=== PATIENT | female | born 2000 | race Two or more races ===

== ENCOUNTER → 2025-04-06 12:02 | Outpatient (BNVA) | payer OTHER, SELFPAY | PROVIDERS: Visit Provider Physician Assistant Medical | DX: Z13.89 Encounter for screening for other disorder (principal) | CPT/HCPCS: 73130; 99202 ==

== ENCOUNTER → 2025-04-21 10:46 | Outpatient (BNVA) | payer OTHER, SELFPAY | PROVIDERS: Visit Provider Internal Medicine | DX: Z13.89 Encounter for screening for other disorder (principal) | CPT/HCPCS: 73080; 99213 ==

== ENCOUNTER 2025-10-18 20:37 | Emergency (ER) | payer OTHER, SELFPAY ==
[2025-10-18 20:40] VITALS: BP 121/82; PULSE 88; RESP 16; TEMP 36.9; O2SAT 100; BMI 33.8
[2025-10-18 21:04] LABS: MANUAL DIFF FLAG NO
[2025-10-18 21:25] LABS: Hematocrit 40.3 % (37.0-47.0); Hemoglobin 13.8 g/dl (12.0-16.0); Imm Gran Abs Auto 0.05 X10*3/uL (0.00-0.03); Imm Gran Pct Auto 0.4 % (0.0-0.4); Lymphocytes Absolute Auto 4.1 X10*3/uL (1.2-4.9); Mean Corpuscular HGB Conc 34.2 g/dl (31.0-35.0); Mean Corpuscular Hemoglobin 29.6 pg (27.0-33.0); Mean Corpuscular Volume 86.3 fL (80.0-98.0); NRBC Abs Auto 0.000 X10*3/uL (0.0-0.012); NRBC Pct Auto 0.0 /100WBC (0.0-0.2); Platelet Count 408 X10*3/uL (160-400); Red Blood Count 4.67 X10*6/uL (4.20-5.50); White Blood Count 13.8 X10*3/uL (4.8-10.8)
[2025-10-18 21:29] LABS: Alanine Aminotransferase 41 U/L (0-31); Albumin Level 4.9 g/dL (3.5-5.0); Alkaline Phosphatase 68 U/L (39-117); Anion Gap 14 (12-20); Aspartate Amino Transferase 30 U/L (5-31); Blood Urea Nitrogen 8 mg/dL (9-16); Calcium 9.3 mg/dL (8.4-10.2); Carbon Dioxide 21 mmol/L (22-29); Chloride 107 mmol/L (96-108); Creatinine Clr Calc Pharmacy 147.6; Estimated Glomerular Filt Rate > 60; Potassium 3.1 mmol/L (3.3-5.1); Sodium 139 mmol/L (135-145); Total Protein 7.8 g/dL (6.5-8.0)
--- OUTSIDE RECORDS SUMMARY | 2025-10-18 22:20 | XMS_ITS | Encounter Summary ---
Author Organization [employer] [facility] Prior to 09/02/2024 Address [address] [place] [address] Care Team Providers Care Fashion Merchandiser Name Role Phone Demarcus North MD Primary Care Provider Francoise Morfin MD Primary Care Provider [phone] Daren Howard MD Primary Care Provider [phone] Encounter Details Date Type Department Care Team Description 03/21/2014 Traveling Sales Executive Report Medical Records [address] [place] [address] Aung Sweeney Social History Tobacco Use Types Packs/Day Years Used Date Smoking Tobacco: Never Smokeless Tobacco: Never Alcohol Use Standard Drinks/Week Comments Not Asked 0 (1 standard drink = 0.6 oz pur e alcohol) Alcohol Habits Answer Date Recorded How often do you have a drink containing alcohol ? Never 10/11/2020 How many drinks containing a lcohol do you have on a typical day when you are drinking? Not asked How often do you have six or more drinks on one occasion? Not asked Sex Assigned at Date Recorded Not on file Job Start Date Occupation Industry Not on file Not on file Not on file documented as of this encounter Plan of Treatment Not on file documented as of this encounter Visit Diagnoses Not on filedocumented in this encounter Care Teams Fashion Merchandiser Relationship Specialty Start Date End Date Demarcus North MD PCP - General Pediatrics 05/29/13 10/10/20 Francoise Bose MD PCP - General Internal Medicine 10/11/20 07/27/22 Daren Howard MD PCP - General Internal Medicine 07/28/22 documented as of this encounter
--- OUTSIDE RECORDS SUMMARY | 2025-10-18 22:20 | XMS_ITS | Encounter Summary ---
Author Organization [employer] [facility] Prior to 09/02/2024 Address [address] [place] [address] Care Team Providers Care Director External Communications Name Role Phone Demarcus North MD Primary Care Provider Francoise Morfin MD Primary Care Provider [phone] Daren Howard MD Primary Care Provider [phone] Encounter Details Date Type Department Care Team Description 06/02/2013 Business Doc Medical Records [address] [place] [address] Abstract, Provider Social History Tobacco Use Types Packs/Day Years [...] on filedocumented in this encounter Care Teams Director External Communications Relationship Specialty Start Date End Date Demarcus North MD PCP - General Pediatrics 05/29/13 10/10/20 Francoise Bose MD PCP - General Internal Medicine 10/11/20 07/27/22 Daren Howard MD PCP - General Internal Medicine 07/28/22 documented as of this encounter
--- OUTSIDE RECORDS SUMMARY | 2025-10-18 22:20 | XMS_ITS | Encounter Summary ---
Author Organization [employer] [facility] Prior to 09/02/2024 Address [address] [place] [address] Care Team Providers Care Hot Dog Vendor Name Role Phone Demarcus North MD Primary Care Provider Francoise Morfin MD Primary Care Provider [phone] Daren Howard MD Primary Care Provider [phone] Encounter Details Date Type Department Care Team Description 05/24/2013 Transfer Records Medical Records [address] [place] [address] Abstract, Provider Social History Tobacco Use Types Packs/Day Years Used Date Smoking Tobacco: Never Assessed Alcohol Habits Answer Date Recorded How often [...] on filedocumented in this encounter Care Teams Hot Dog Vendor Relationship Specialty Start Date End Date Demarcus North MD PCP - General Pediatrics 05/29/13 10/10/20 Francoise Bose MD PCP - General Internal Medicine 10/11/20 07/27/22 Daren Howard MD PCP - General Internal Medicine 07/28/22 documented as of this encounter
--- OUTSIDE RECORDS SUMMARY | 2025-10-18 22:20 | XMS_ITS | Encounter Summary ---
Author Organization [employer] [facility] Prior to 09/02/2024 Address [address] [place] [address] Care Team Providers Care Commissions Specialist Name Role Phone Francoise Bose MD Primary Care Provider [phone] Daren Howard MD Primary Care Provider [phone] Encounter Details Date Type Department Care Team Description 05/23/2021 Telephone OBGYN - [employer]. [address] [place] [address] Aleja Wilkins MD [address] [place] [address] Social History Tobacco Use Types Packs/Day Years Used Date Smoking Tobacco: Never Smokeless Tobacco: Never Alcohol Use Standard Drinks/Week Comments No 0 (1 standard drink = 0.6 oz [...] on file documented as of this encounter Miscellaneous Notes * Telephone Encounter - Adrianne Harris R.N. - 05/23/2021 9:37 AM EDT Call placed to patient home number in response to my chart message. VM left with request for return call; will also respond to my chart message. documented in this encounter Plan of Treatment Not on file documented as of this encounter Visit Diagnoses Not on filedocumented in this encounter Care Teams Commissions Specialist Relationship Specialty Start Date End Date Francoise Bose MD PCP - General Internal Medicine 10/11/20 07/27/22 Daren Howard MD PCP - General Internal Medicine 07/28/22 documented as of this encounter
--- OUTSIDE RECORDS SUMMARY | 2025-10-18 22:20 | XMS_ITS | Encounter Summary ---
Author Organization [employer] [facility] Prior to 09/02/2024 Address [address] [place] [address] Care Team Providers Care Wire Mesh Filter Fabricator Name Role Phone Francoise Bose MD Primary Care Provider [phone] Daren Howard MD Primary Care Provider [phone] Reason for Visit * Reason Onset Date Comments Cyst 03/12/2022 Encounter Details Date Type Department Care Team Description 03/12/2022 Telephone OBGYN - [address] [place] [phone] Ailin Quintero, [address] [address] Cyst Social History Tobacco Use Types Packs/Day Years [...] encounter Miscellaneous Notes * Telephone Encounter - Natacha Perera M.A. - 03/12/2022 2:22 PM EDT review * Telephone Encounter - Stephanie Tito - 03/12/2022 2:18 PM EDT Patient calling states had a cyst to her vaginal labia that drained on its own. Patient wants to know does she need to schedule follow up for evaluation or is there anything else she should do. Please advise documented in this encounter Plan of Treatment Not on file documented as of this encounter Visit Diagnoses Not on filedocumented in this encounter Care Teams Wire Mesh Filter Fabricator Relationship Specialty Start Date End Date Francoise Bose MD PCP - General Internal Medicine 10/11/20 07/27/22 Daren Howard MD PCP - General Internal Medicine 07/28/22 documented as of this encounter
--- OUTSIDE RECORDS SUMMARY | 2025-10-18 22:20 | XMS_ITS | Encounter Summary ---
Author Organization [employer] [facility] Prior to 09/02/2024 Address [address] [place] [address] Care Team Providers Care Well Flow Operator Name Role Phone Demarcus North MD Primary Care Provider Francoise Morfin MD Primary Care Provider [phone] Daren Howard MD Primary Care Provider [phone] Encounter Details Date Type Department Care Team Description 03/01/2018 Director Industrial Relations Report Medical Records [address] [place] [address] Abstract, Provider Social History Tobacco Use Types [...] on filedocumented in this encounter Care Teams Well Flow Operator Relationship Specialty Start Date End Date Demarcus North MD PCP - General Pediatrics 05/29/13 10/10/20 Francoise Bose MD PCP - General Internal Medicine 10/11/20 07/27/22 Daren Howard MD PCP - General Internal Medicine 07/28/22 documented as of this encounter
--- OUTSIDE RECORDS SUMMARY | 2025-10-18 22:20 | XMS_ITS | Encounter Summary ---
Author Organization [employer] [facility] Prior to 09/02/2024 Address [address] [place] [address] Care Team Providers Care Human Resource Assistant Name Role Phone Demarcus North MD Primary Care Provider Francosie Morfin MD Primary Care Provider [phone] Daren Howard MD Primary Care Provider [phone] Encounter Details Date Type Department Care Team Description 06/02/2013 SCAN Medical Records [address] [place] [address] Abstract, Provider Social History Tobacco Use Types [...] on filedocumented in this encounter Care Teams Human Resource Assistant Relationship Specialty Start Date End Date Demarcus North MD PCP - General Pediatrics 05/29/13 10/10/20 Francoise Bose MD PCP - General Internal Medicine 10/11/20 07/27/22 Daren Howard MD PCP - General Internal Medicine 07/28/22 documented as of this encounter
--- OUTSIDE RECORDS SUMMARY | 2025-10-18 22:20 | XMS_ITS | Clinical Summary ---
Author Organization [facility] Address [address] [place] [address] Phone Care Team Providers Care Concrete Engineering Technician Name Role Phone Daren Howard MD Primary Care Provider [phone] Allergies No known active allergies Medications ibuprofen (ADVIL,MOTRIN) 800 mg tablet Active levonorgestreL (Mirena) 21 mcg/24hr (up to 8 yrs) 52 mg IUD by intrauterine route. Active Active Problems Problem Noted Date Diagnosed Date Allergic rhinitis 08/22/2025 Overview (08/22/2025): Has been on Zyrtec and flonase Last Assessment & Plan: Well controlled. No Flonase at the moment. Mild intermittent asthma 08/22/2025 Overview (08/22/2025): 2 hosp, no intubations, by 2009 steroids 3 x year Has been on Singulair, Flovent and alb prn 02/26/2018 Doing well of flovent for years. Some symptoms when active, alb prior to PA, if not better to be seen. Last Assessment & Plan: Asthma Control Test Total Score: 19 Interpetation of Score: < or equal to 19 Intervention Recommended Has not used Albuterol in months. No flovent at the moment Vulvar cyst 01/26/2023 Overview (08/22/2025): Last Assessment & Plan: Patient counseled on expectant management with continued sitz bath's versus incision and drainage today. She elects for the latter. I&D performed, tolerated well by patient. Postprocedure instructions reviewed. All questions answered. Bartholin's gland abscess 10/02/2022 Overview (08/22/2025): Drained spontaneously in office IUD (intrauterine device) in place 06/28/2022 Overview (08/22/2025): Last Assessment & Plan: Seems to be appropriately placed, but I recommended we obtain an US. Pelvic pain 06/28/2022 Overview (08/22/2025): Last Assessment & Plan: No obvious cause. Could be an ovarian cyst with IUD in place. Will get pelvic US. Syncope 03/07/2019 Overview (08/22/2025): 03/07/19 possible vasovagal syndrome. MDD (major depressive disorder) 03/20/2014 Overview (08/22/2025): [facility] admission 03/09/14 had psychotic features (hallusinations), CBC, CMP, TSH NL, lipid panel NL 03/21/14 admitted to partial hosp 10/02/14 cutting her [place], depressed, see therapist, mother to call and request eval ROSA by psychiatrist. 10/02/14 unable to contact psychiatrist, therapist agrees with meds, started on prozac 20 gm FU in 2 weeks. 11/24/13 mother d/c prozac to sleepy during the day, mood ok, seen therapist, waiting list for psychiatrist. 01/31/15 [place] [facility] [place] [place] much better, good grades, happy, 09/24/15 not stressors, no mood problem,. Feeling happy at school and at home. 02/15 much better, observe MOORE (headache) 05/31/2013 Overview (08/22/2025): Morning MOORE with emesis nl head CT 2007 Last Assessment & Plan: No MOORE Encounters Date Type Department Care Team Description 10/04/2025 Telephone Obstetrics and Gynecology [address] [address] Ailin Cohen CNM 08/28/2025 3:30 PM EDT Procedure visit Obstetrics & Gynecology - [address] [address] Evelyn Mendenhall CNM Encounter for IUD removal (Primary Dx) from Last 3 Months Immunizations Immunization Administration Dates Next Due DTaP (Infanrix) 6wks to less than 7yo ,03/09/2003,11/24/2002,11/24,2001,2001 [id number] (Pentacel) 2mo to less than 5yo 03/09/2003,11/24/2002,2001,08/24,2001 HPV 9-valent (Gardisil) 9yo to less than 46yo 07/23/2016,02/12/2016 HPV, Quadrivalent 10/02/2014 Hepatitis B Pediatric (Enger ix B; Recombivax HB) to less than 20 yo 11/24/2002,2001,2001 IPV Inactivated polio (Ipol) 6wks and older 04/16/2005,11/24/2002,2001,08/24,2001 Influenza trivalent, 0.5mL, preservative free (Fluarix; FluLaval; Fluzone) ages 6mo and older (Afluria) 3 years and older 11/20/2017,07/23/2016,09/24/2015,10/02,08/23/2008 MMR, measles mumps and rubel la Live (Priorix; M-M-R II) 12mo and older 04/16/2005,05/23/2002 Meningococcal MCV4P 02/26/2018,10/02/2014 Pneumococcal Conjugate Vacci ne, 7 Valent 03/09/2003 Tdap Tetanus diptheria acell ular pertussis (Boostrix; Adacel) 7yo and older 06/16/2013 Varicella live (Varivax) 12m o and older 06/16/2013,07/12/2003 Surgical History Surgery Date Site/Laterality Comments APPENDECTOMY 2007 PROCEDURE: HISTORICAL APPENDECTOMY Medical History Medical History Date Comments Mild intermittent asthma DX:Mild intermittent asthma Allergic rhinitis DX:Allergic rh initis Constipation DX:Constipation Influenza A 11/21/2017 DX:Influenza A Chlamydia contact, treated 10/27/2020 DX:Ch lamydia contact, treated Family History Medical History Relation Name Comments Diabetes Father type 2 Other: thyroid ca Father's side father's sisters Depression Mother Hypertension Mother Other: arthritis Mother Other: asd Mother open hear repai r Other: fibromyalgia Mother Other: head strock Mother 2009 Breast cancer Neg Hx Colon cancer Neg Hx Ovarian cancer Neg Hx Relation Name Status Comments Father Father's side Mother Social History Tobacco Use Types Packs/Day Years Used Date Smoking Tobacco: Never Smokeless Tobacco: Never Alcohol Use Standard Drinks/Week Comments Yes 0 (1 standard drink = 0.6 oz pur e alcohol) Comments Unknown Sex and Gender Information Value Date Recorded Sex Assigned at Not on file Legal Sex Female 8:28 AM EST Gender Identity Not on file Sexual Orientation Not on file Obstetrics History Para Term AB IAB SAB Ectopic Multiple Livin g Live Births 0 0 0 0 0 0 0 0 Last Filed Vital Signs Vital Sign Reading Time Taken Comments Blood Pressure 110/71 08/28/2025 3:37 PM EDT Pulse 79 08/28/2025 3:37 PM EDT Temperature - - Respiratory Rate - - Oxygen Saturation - - Inhaled Oxygen Concentration - - Weight 82 kg (180 lb 12.8 oz) 08/28/2025 3:37 PM EDT Height 157.5 cm (5' 2 ) 08/28/2025 3:37 PM EDT Body Mass Index 33.07 08/28/2025 3:37 PM EDT Plan of Treatment Health Maintenance Due Date Last Done Comments Gonorrhea/Chlamydia Screening 2001 Pneumococcal Vaccine: Pediatrics (0 to 5 Years) and At-Risk Patients (6 to 49 Years) (1 of 1 - PPSV23, PCV20, or PCV21) 2007 03/09/2003 HIV Screening 10/05/2022 Hepatitis C Screening 10/05/2022 Social Influencers of Health Screening 10/05/2022 DTaP,Tdap,and Td Vaccines (7 - Td or Tdap) 06/16/2023 06/16/2013, 05/21/2005, 03/09/2003, Additional history exists Depression Screening 11/02/2024 COVID-19 Vaccine (1 - 2025-26 season) 2025 Influenza Vaccine (#1) 2025 8, 07/23/2016, 09/24/2015, Additional history exists Cervical Cancer Screening: Pap Smear 04/08/2026 04/08/2023 RSV Immunization Adult Patients (1 - 1-dose 75+ series) 2076 Hepatitis B Vaccines Completed 11/24/2002, 2001, 2001 HIB Vaccines Completed 03/09/2003, 06/2003, 11/24/2002, Additional history exists IPV Vaccines Completed 04/16/2005, 06/2003, 11/24/2002, Additional history exists MMR Vaccines Completed 04/16/2005, 05/23/2002 Varicella Vaccines Completed 06/16/2013, 07/12/2003 HPV Vaccines Completed 07/23/2016, 01/31, 10/02/2014 Meningococcal ACWY Vaccine Completed 02/26/2018, Hepatitis A Vaccines Aged Out No long er eligible based on patient's age to complete this topic Meningococcal B Vaccine Aged Out No l onger eligible based on patient's age to complete this topic RSV Immunization Patients Under 20 months Aged Out No longer eligible based on patient's age to complete this topic Procedures Procedure Name Priority Date/Time Associated Diagnosis Comments OH REMOVAL INTRAUTERINE DEVICE Routine 08/28/2025 3:35 PM EDT Encounter for IUD removal PAP SMEAR Routine 04/08/2023 from Last 3 Months or Most Recently Relevant to Health Maintenance Results * OH REMOVAL INTRAUTERINE DEVICE (08/28/2025 3:35 PM EDT) Narrative Evelyn Mendenhall CNM - 08/28/2025 3:35 PM EDT Evelyn Mendenhall CNM 08/28/2025 3:45 PM IUD Removal Date/Time: 08/28/2025 3:35 PM Performed by: Evelyn Mendenhall CNM Authorized by: Evelyn Mendenhall CNM Informed Consent: Procedure/treatment, purpose, treatment alternatives, risks/potential complications and benefits explained: yes Patient questions answered: yes Patient agrees, verbalizes understanding, and wants to proceed: yes Consent given by: Patient Informed consent discussion completed by Physician/EMEKA with patient: Witnessed Pre-procedure timeout performed: yes Removal Procedure: Strings visible: yes Removal device: bozzerman grasp strings. Removal reason: Side effects Removal successful: yes Complications: no Comments: Declines bc at this time us Evelyn Mendenhall CNM IN CLINIC/BEDSIDE ORDERABLES Final Result * Pap smear (04/08/2023) 04/08/2023 Narrative HISTORICAL TESTING LAB RESULTING AGENCY - 04/15/2023 4:15 PM EDT [id number] THINPREP PAP, IMAGED: NEGATIVE FOR SQUAMOUS INTRAEPITHELIAL LESION AND MALIGNANCY . SHIFT IN FABIAN, SUGGESTIVE OF BACTERIAL VAGINOSIS. ABUNDANT PARTIALLY OBSCURING ACUTE INFLAMMATORY CELLS ARE PRESENT. CAMRYN BLISS(ASCP) (CASE ELECTRONICALLY SIGNED 04 15 2023) ADEQUACY: SATISFACTORY ENDOCERVICAL/TRANSFORMATION ZONE COMPONENT PRESENT. SOURCE: THINPREP PAP HPV IF ASCUS, CERVICAL, IMAGED CLINICAL INFORMATION: HPV IF DIAGNOSIS OF ASCUS. HORMONES IUD, [Z12.4] us Mildred Perdomo DO LAB CYTOLOGY ORDERABLES Final Result HISTORICAL TESTING LAB RESULTING AGENCY from Last 3 Months or Most Recently Relevant to Health Maintenance Insurance [facility] [place] [address] Care Teams Concrete Engineering Technician Relationship Specialty Start Date End Date Daren Howard MD [address] [place] [address] PCP - General Internal Medicine 07/28/22
--- OUTSIDE RECORDS SUMMARY | 2025-10-18 22:20 | XMS_ITS | Encounter Summary ---
Author Organization [employer] [facility] Prior to 09/02/2024 Address [address] [place] [address] Care Team Providers Care Fast Food Fry Cook Name Role Phone Demarcus North MD Primary Care Provider Frnacoise Morfin MD Primary Care Provider [phone] Daren Howard MD Primary Care Provider [phone] Encounter Details Date Type Department Care Team Description 09/30/2019 Release of Information Medical Records [address] [place] [address] Abstract, Provider Social History Tobacco Use Types [...] on filedocumented in this encounter Care Teams Fast Food Fry Cook Relationship Specialty Start Date End Date Demarcus North MD PCP - General Pediatrics 05/29/13 10/10/20 Francoise Bose MD PCP - General Internal Medicine 10/11/20 07/27/22 Daren Howard MD PCP - General Internal Medicine 07/28/22 documented as of this encounter
--- OUTSIDE RECORDS SUMMARY | 2025-10-18 22:20 | XMS_ITS | Encounter Summary ---
Author Organization [employer] [facility] Prior to 09/02/2024 Address [address] [place] [address] Care Team Providers Care Portfolio Management Marketing Name Role Phone Francoise Bose MD Primary Care Provider [phone] Daren Howard MD Primary Care Provider [phone] Encounter Details Date Type Department Care Team Description 10/27/2020 Orders Only OBGYN - [place] [address] [place] [address] Aleja Wilkins MD [address] [place] [address] [phone] Social History Tobacco Use Types Packs/Day Years [...] file Not on file Not on file COVID-19 Exposure Response Date Recorded In the last month, have you been in contact with someone who was confirmed or suspected to have Coronavirus / COVID-19? No / Unsure 10/17/2020 11:26 AM EST documented as of this encounter Plan of Treatment Not on file documented as of this encounter Visit Diagnoses Not on filedocumented in this encounter Care Teams Portfolio Management Marketing Relationship Specialty Start Date End Date Francoise Bose MD PCP - General Internal Medicine 10/11/20 07/27/22 Daren Howard MD PCP - General Internal Medicine 07/28/22 documented as of this encounter
--- OUTSIDE RECORDS SUMMARY | 2025-10-18 22:20 | XMS_ITS | Encounter Summary ---
Author Organization [employer] [facility] Prior to 09/02/2024 Address [address] [place] [address] Care Team Providers Care Gas Specialist Name Role Phone Demarcus North MD Primary Care Provider Francoise Morfin MD Primary Care Provider [phone] Daren Howard MD Primary Care Provider [phone] Encounter Details Date Type Department Care Team Description 11/24/2014 Telephone Pediatrics - [address] [address] Demarcus North MD Social History Tobacco Use Types Packs/Day Years [...] encounter Miscellaneous Notes * Telephone Encounter - Demarcus North MD - 11/24/2014 6:21 PM EST As per mother seen therapist, waiting list for psychiatrist. As per mother mood disorder not worse.Good days and bad days. Mother stopped Prozac, to sleepy during the day. Mother again reports that menses are regular and not heavy. Notify about lo hg/ will start her on MVT with iron and to increase iron intake in her diet. Mother does not want OCP at the moment. Will call in 2 months to recheck labs. Mother to call us before if any updates. documented in this encounter Plan of Treatment Not on file documented as of this encounter Visit Diagnoses Diagnosis Abnormal uterine bleeding (AUB) MDD (major depressive disorder) Major depressive disorder, single episode, unspecified documented in this encounter Care Teams Gas Specialist Relationship Specialty Start Date End Date Demarcus North MD PCP - General Pediatrics 05/29/13 10/10/20 Francoise Bose MD PCP - General Internal Medicine 10/11/20 07/27/22 Daren Howard MD PCP - General Internal Medicine 07/28/22 documented as of this encounter
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
[2025-10-18 22:28] LABS: Appearance Urine Cloudy; Glucose Urine UA Negative (Negative); PH 8.0 (5.0-9.0); Specific Gravity - Urine 1.015 (1.005-1.025); UMIC TRIGGER UACC YES
[2025-10-18 22:44] LABS: UACC Culture Trigger YES
[2025-10-18 22:52] VITALS: BP 106/70; PULSE 82; RESP 19; TEMP 36.6; O2SAT 98
--- NOTE | 2025-10-18 22:59 | ED.NAVMDI ---
HPI - Nausea/Vomiting/Diarrhea General Chief complaint: Nausea/Vomiting/Diarrhea Stated complaint: hand, face, feet cramp Time Seen by Provider: 10/18/25 22:56 Source: patient Mode of arrival: ambulatory Limitations: no limitations History of Present Illness ED Provider: Jaleel MAE HPI Narrative: The patient is a 25-year-old female presents with approximately six hours of progressive painful cramping of the hands and feet that began after multiple episodes of vomiting earlier in the day. Patient reports shortly after vomiting episodes, while seated, she developed ringing in the ears followed by facial tingling that spread to her arms, then cramping of both hands and feet. She reports feeling short of breath at that time and believes she may have experienced a panic attack. She denies similar episodes in the past. Earlier today she sought evaluation at another facility but left due to a prolonged wait time. Yesterday she felt well. She reports subjective chills, however denies associated objective fever, chest pain, cough, hematemesis, hematochezia, melena, diarrhea and dysuria. Related Data Previous Rx's ?Medication ?Instructions ?Recorded ibuprofen 800 mg tablet 800 mg PO TID PRN pain #30 tabs 04/06/25 cephalexin 500 mg capsule 500 mg PO QID #28 caps 10/19/25 ondansetron 4 mg disintegrating 4 mg PO Q8H PRN nausea and 10/19/25 tablet vomiting #14 tabs Allergies Allergy/AdvReac Type Severity Reaction Status Date / Time No Known Allergies Allergy Verified 10/18/25 20:42 Review of Systems Review of Systems: Yes all other systems are reviewed and are negative PMFSH Social History Social History Smoked in Last 30 Days: No Use of substances other than those prescribed or required for medical reasons: Yes Substance Use Type: Marijuana Advance Directives: No Advance Directives Information Provided: Yes Physical Exam Vital Signs: Vital Signs: Last Vital Signs Temp 98 F 10/18/25 22:52 Pulse 76 10/19/25 01:29 Resp 18 10/19/25 01:29 BP 119/76 10/19/25 01:29 Pulse Ox 100 10/19/25 01:29 O2 Del Method Room Air 10/19/25 01:29 BMI result Body Mass Index 33.8 CONSTITUTIONAL: The patient appears non-toxic, well nourished and in no acute distress. Vital signs as documented. HEAD: Atraumatic, normocephalic. EYES: EOMs intact, pupils equal and appropriately reactive to light, conjunctiva clear, no exudate. ENT: Nares patent, no discharge. Airway patent, no audible stridor, visible mucosa is pink and moist without noted lesions. NECK: Trachea is midline, no obvious masses or gross abnormalities. CHEST: Symmetric movement, normal appearance. LUNGS: LS present and CTAB, no w/r/r. Non-labored work of breathing. CARDIAC: Regular Rhythm, S1/S2 appreciated, no murmurs, rubs or gallops. ABDOMEN: Abdomen soft and non-tender x4 quadrants, no palpable masses or organomegaly. : Deferred. EXTREMITIES: Mild carpopedal spasm noted in the bilateral hands, otherwise normal tone, No obvious acute injury or other deformity noted. NEURO: Alert and oriented x3, CN II-XII intact. No obvious sensory or motor deficits. Speech clear and appropriate. PSYCH: normal affect, appropriate eye contact, fluid speech, with appropriate response to questioning. No reported suicidality or homicidality. SKIN: Warm, dry, color appropriate, normal turgor. No rashes noted. Medications Administered Discontinued Medications Generic Name Dose Route Start Last Admin Trade Name Freq PRN Reason Stop Dose Admin Diazepam 5 mg 10/18/25 23:19 10/18/25 23:36 Diazepam 10 Mg/2 Ml Cartridge IVPUSH 10/18/25 23:20 5 mg STAT STA Administration Sodium Chloride 1,000 mls @ 999 mls/hr 10/18/25 23:30 10/19/25 01:06 Ns IV 10/19/25 00:30 Infused .Q1H1M OLEGARIO Infusion Potassium Chloride 10 meq in 100 mls @ 100 mls/hr 10/18/25 23:30 10/19/25 03:27 Potassium Chloride/H20 IV 10/19/25 03:29 100 mls/hr Q1H OLEGARIO Administration Ceftriaxone Sodium 1 gm/ 50 mls @ 100 mls/hr 10/18/25 23:19 10/19/25 00:06 Sodium Chloride IV 10/18/25 23:48 Infused ONCE ONE Infusion Ketorolac Tromethamine 15 mg 10/18/25 23:19 10/18/25 23:36 Ketorolac Tromethamine 15 Mg/Ml Vial IVPUSH 10/18/25 23:20 15 mg ONCE ONE Administration Potassium Chloride 40 meq 10/18/25 23:19 10/18/25 23:34 Potassium Chloride Er 20 Meq Tab.Er.Prt PO 10/18/25 23:20 40 meq ONCE ONE Administration Medical Decision Making Medical Decision Making [facility] Narrative: 11:22 PM 10/18/2025 (Katy MAE): The patient is a 25-year-old female presents with approximately six hours of progressive painful cramping of the hands and feet that began after multiple episodes of vomiting earlier in the day. Patient reports shortly after vomiting episodes, while seated, she developed ringing in the ears followed by facial tingling that spread to her arms, then cramping of both hands and feet. She reports feeling short of breath at that time and believes she may have experienced a panic attack. She denies similar episodes in the past. Earlier today she sought evaluation at another facility but left due to a prolonged wait time. Yesterday she felt well. She reports subjective chills, however denies associated objective fever, chest pain, cough, hematemesis, hematochezia, melena, diarrhea and dysuria. In the ED the patient appears anxious, but in no acute distress, patient does have mild carpopedal spasm noted of the bilateral hands, lung sounds are clear, abdomen nontender, remainder of exam is benign. The patient is alert and oriented, denies headache, recent fall, or other blunt head trauma. The patient's laboratory evaluation demonstrates leukocytosis with 13.8, no anemia, or BEVERLY. The patient's chemistry does demonstrate hypokalemia. The patient's urinalysis demonstrates large leukocyte esterase with greater than 50 WBCs and 4+ bacteria. The patient will be further evaluated with magnesium level, we will provide IV fluid hydration, antispasmodic, antibiotic, oral and IV potassium repletion, and we will replete magnesium as indicated when resulted. 4:29 AM 10/19/2025 (Katy MAE): The patient's symptoms have dramatically improved following interventions in the ED. Patient has been resting comfortably during potassium infusion. Carpopedal spasm has completely resolved and patient reports feeling improvement in symptoms. Upon completion of potassium infusion the patient will be discharged with a 7 day course of cephalexin for her UTI, antiemetics PRN, and outpatient follow up. Admission/Observation Consideration of admission/observation: Escalation of care including admission/observation considered Lab Data MDM Lab Attestation statement: I reviewed the patient's lab results. 10/18/25 20:57 10/18/25 20:57 Labs: Lab Results 10/18/25 10/18/25 Range/Units 20:57 22:07 WBC 13.8 H (4.8-10.8) X10*3/uL RBC 4.67 (4.20-5.50) X10*6/uL Hgb 13.8 (12.0-16.0) g/dl Hct 40.3 (37.0-47.0) % MCV 86.3 (80.0-98.0) fL MCH 29.6 (27.0-33.0) pg MCHC 34.2 (31.0-35.0) g/dl RDW 12.8 (11.0-16.0) % Plt Count 408 H (160-400) X10*3/uL MPV 8.9 L (9.4-12.3) fL Immature Gran % (Auto) 0.4 (0.0-0.4) % Neut % (Auto) 65.5 (45-73) % Lymph % (Auto) 29.6 (20-40) % Yates % (Auto) 4.0 (2-11) % Eos % (Auto) 0.0 (0-4) % Baso % (Auto) 0.5 (0-2) % Lymph # (Auto) 4.1 (1.2-4.9) X10*3/uL Yates # (Auto) 0.6 (0.1-1.2) X10*3/uL Eos # (Auto) 0.0 (0.0-0.4) X10*3/uL Baso # (Auto) 0.1 (0.0-0.2) X10*3/uL Abs Immat Gran (auto) 0.05 H (0.00-0.03) X10*3/uL Absolute Neuts (auto) 9.0 H (2.0-8.3) x10*3/uL Absolute Nucleated RBC 0.000 (0.0-0.012) X10*3/uL Nucleated RBC % (auto) 0.0 (0.0-0.2) /100WBC Sodium 139 (135-145) mmol/L Potassium 3.1 L (3.3-5.1) mmol/L Chloride 107 (96-108) mmol/L Carbon Dioxide 21 L (22-29) mmol/L Anion Gap 14 (12-20) BUN 8 L (9-16) mg/dL Creatinine 0.59 (0.5-1.4) mg/dL Estim Creat Clear Calc 147.6 Estimated GFR > 60 Random Glucose 100 (60-115) mg/dL Calcium 9.3 (8.4-10.2) mg/dL Magnesium 1.7 (1.6-2.6) mg/dL Total Bilirubin 1.1 H (0.0-1.0) mg/dL AST 30 (5-31) U/L ALT 41 H (0-31) U/L Alkaline Phosphatase 68 (39-117) U/L Total Protein 7.8 (6.5-8.0) g/dL Albumin 4.9 (3.5-5.0) g/dL Beta HCG, Quant < 2 mIU/mL Urine Color Yellow Urine Appearance Cloudy Urine pH 8.0 (5.0-9.0) Ur Specific [place] 1.015 (1.005-1.025) Urine Protein Trace (Neg-Trace) mg/dL Urine Glucose (UA) Negative (Negative) mg/dL Urine Ketones Negative (Negative) mg/dL Urine Blood Negative (Negative) Urine Nitrite Negative (Negative) Ur Leukocyte Esterase Large (3+) H (Negative) Urine RBC 0-2 (0-2) /HPF Urine WBC >50 H (0-5) /HPF Ur Squamous Epith Cells 6-10 (0-2) /HPF Urine Bacteria 4+ (None Seen) Hyaline Casts 0-2 (0-2) /LPF External Record Review External record reviewed: Outpatient record Discharge Plan Discharge Clinical Impression: Carpopedal spasm, Hypokalemia Urinary tract infection Qualifiers: Urinary tract infection type: acute cystitis Hematuria presence: without hematuria Qualified Code(s): N30.00 - Acute cystitis without hematuria Patient Disposition: Home, Self-Care Instructions: Urinary Tract Infection in Women (ED), Hypokalemia (ED), Carpopedal Spasm (ED) Additional Instructions: Thank you for choosing [facility]'s Emergency Department for your care today. At this time there is no indication for admission to the hospital or continued ED observation, and it is safe to discharge you home. Your symptoms today were likely caused by an underlying urinary tract infection, which caused you to experience nausea and vomiting. The vomiting may have caused a decrease in your potassium levels. It may have also caused increased anxiety, which led to hyperventilation, resulting in a condition known as carpopedal spasm. Please read the attached information regarding this condition. Thankfully your symptoms all improved following interventions in the ED, and your laboratory evaluation was otherwise reassuring with no evidence of anemia, other electrolyte deficiencies, kidney dysfunction, or a systemic infection. We corrected your low potassium with both oral and IV potassium supplementation. Your urinary tract infection is being treated with cephalexin, please take this as prescribed until it is finished. You may take Zofran as needed as directed for any additional nausea. You should take alternating (staggered) doses of ibuprofen 600mg and Tylenol 1000mg every 4 hours as needed for any additional pain. Please stay well hydrated and get plenty of rest. Please follow up with your primary care physician for re-evaluation, additional management of your symptoms, and continued preventative care. If you do not have a primary care physician, please call the [facility] at [phone] to establish a new primary care physician. While waiting to establish your new primary care physician, you can call our [facility] at [phone] for non-emergency needs. Please return to the emergency department if you develop a severe or sudden change in your symptoms, a fever over 100.4 that does not improve with Tylenol or Ibuprofen, recurrent vomiting, or any other new or worsening symptoms or concerns. Prescriptions: New cephalexin 500 mg capsule 500 mg PO QID Qty: 28 0RF ondansetron 4 mg tablet,disintegrating 4 mg PO Q8H PRN (Reason: nausea and vomiting) Qty: 14 0RF No Action ibuprofen 800 mg tablet 800 mg PO TID PRN (Reason: pain) Qty: 30 0RF Print Language: Grenadian
[2025-10-18 23:22] LABS: Magnesium 1.7 mg/dL (1.6-2.6)
[2025-10-18] MEDS: Potassium Chloride ER 20 MEQ TAB.ER.PRT 40 MEQ PO (23:34)
[2025-10-18] MEDS: diazePAM 10 MG/2 ML CARTRIDGE 5 MG IVPUSH (23:36)
[2025-10-19] MEDS: Potassium Chloride/H20 10 MEQ/100 ML PIGGYBACK 100 MEQ IV ×4 (01:01→03:27)
[2025-10-19 01:29] VITALS: BP 119/76; PULSE 76; RESP 18; O2SAT 100
[2025-10-19 04:49] VITALS: BP 115/80; PULSE 85; RESP 24; TEMP 36.7; O2SAT 99
[2025-10-19 05:08] VITALS: BP 115/80; PULSE 85; RESP 18; TEMP 36.7; O2SAT 99
== END 2025-10-19 05:09 | disposition home or self-care (01) ==
PROVIDERS: Physician Assistant; Emergency Provider Emergency Medicine
DX: R29.0 Tetany (principal); E87.6 Hypokalemia; N30.00 Acute cystitis without hematuria; R11.2 Nausea with vomiting, unspecified
CPT/HCPCS: 36415; 80053; 81001; 83735; 84702; 85025; 87086; 87088; 87186; 96361; 96365; 96366; 96375; 99284; J0696; J1885; J3360; J3480